=== PATIENT | male | born 1930 | race Caucasian/White ===

== ENCOUNTER 2018-09-22 10:02 | Observation (INO) | payer MEDICARE, OTHER ==
[~2018-09-22] VITALS: Ht 177.8 cm; Wt 62.5 kg
[~2018-09-22 10:02] MED LIST: ASPI325T; BENA10TA2; COUM1TAB17; DEMA20TA; FLOM0.4C39; HALC0.25; HUMUINJ; INSULANT; METO5TAB2; MULTIVIT; NEXI1CAP3; NORV5TAB; TENO25TA; ZOCO40TA
[2018-09-22] MEDS ORDERED: LISI-542 (10:16)
[2018-09-22] MEDS ORDERED: FURO40TA2 (10:16)
[2018-09-22] MEDS ORDERED: JANU100T (10:16)
[2018-09-22] MEDS ORDERED: GLIM4TAB (10:16)
[2018-09-22] MEDS ORDERED: ALLO100T (10:16)
[2018-09-22] MEDS ORDERED: CARV12.5 (10:16)
[2018-09-22] MEDS ORDERED: DONE5TAB82 (10:16)
[2018-09-22] MEDS ORDERED: POTA1TAB23 (10:16)
[2018-09-22] MEDS ORDERED: DIGO0.12 (10:16)
[2018-09-22 11:19] LABS: BASO # 0.1 10^3/uL (0.0-0.2); BASO % 0.5 % (0.0-1.0); EOS # 0.4 10^3/uL (0.0-0.50); HEMATOCRIT 36.8 % (42.0-52.0); HEMOGLOBIN 12.2 g/dl (13.5-17.5); LYMPH # 1.5 10^3/uL (1.5-4.5); LYMPH % 13.6 % (24.0-44.0); MEAN CORPUSCULAR HEMOGLOBIN 30.9 pg (27.0-33.0); MEAN CORPUSCULAR HGB CONC 33.2 g/dl (32.0-36.5); MEAN CORPUSCULAR VOLUME 93.2 fl (80.0-96.0); MONO # 0.8 10^3/uL (0.0-0.8); MONO % 7.4 % (0.0-5.0); NEUTROPHILS # 8.2 10^3/uL (1.8-7.7); PLATELET COUNT, AUTOMATED 199 10^3/uL (150-450); RED BLOOD COUNT 3.95 10^6/uL (4.30-6.10)
[2018-09-22] MEDS ORDERED: ARIC1TAB PO (11:30)
[2018-09-22] MEDS ORDERED: DIGO0.12 PO (11:30)
[2018-09-22] MEDS ORDERED: POTA10TA17 PO (11:30)
[2018-09-22] MEDS ORDERED: CARV12.5 PO (11:30)
[2018-09-22] MEDS ORDERED: GLIM4TAB PO (11:30)
[2018-09-22] MEDS ORDERED: WARF-23 PO (11:30)
[2018-09-22] MEDS ORDERED: JANU100T PO (11:30)
[2018-09-22] MEDS ORDERED: FURO40TA2 PO (11:30)
[2018-09-22] MEDS ORDERED: SIMV20TA2 PO (11:30)
[2018-09-22] MEDS ORDERED: ALLO100T PO (11:30)
[2018-09-22] MEDS ORDERED: LISI-542 PO (11:30)
[2018-09-22] MEDS ORDERED: WARF-18 PO (11:30)
[2018-09-22] MEDS ORDERED: TAMS1CAP17 PO (11:30)
[2018-09-22 11:32] LABS: INR 1.64; PROTHROMBIN TIME 19.7 SECONDS (12.1-14.4)
--- NOTE | 2018-09-22 12:07 | REP ---
CT BRAIN WITHOUT IV CONTRAST: CT brain performed without IV contrast. Comparison 07/07/2013. There is moderate atrophy. There is no midline shift or mass effect. Extensive periventricular small vessel ischemic changes are noted as seen on prior study. There is no acute hemorrhage. There is no extra-axial fluid collection. Vascular calcifications are seen in the carotid siphons. IMPRESSION: Chronic atrophy and small vessel ischemic changes without acute intracranial hemorrhage or other acute intracranial finding. Electronically Signed by Kaiden Rich MD 09/22/2018 03:46 P
[2018-09-22 12:09] LABS: ALBUMIN 3.3 GM/DL (3.2-5.2); BILIRUBIN,DIRECT 0.2 MG/DL (0.0-0.2); BILIRUBIN,TOTAL 0.6 MG/DL (0.2-1.0); CALCIUM LEVEL 8.7 MG/DL (8.8-10.2); CREATININE FOR GFR 1.49 MG/DL (0.70-1.30); DIGOXIN LEVEL 0.5 NG/ML (0.5-2.0); GLOMERULAR FILTRATION RATE 47.3 (>35); MB/CK RELATIVE INDEX 5.5 (< OR =4); POTASSIUM SERUM 4.1 MEQ/L (3.5-5.1); THYROID STIMULATING HORMONE 4.81 uIU/ML (0.358-3.740); TOTAL PROTEIN 6.3 GM/DL (6.4-8.2); TROPONIN I 0.13 NG/ML (< 0.10)
[2018-09-22 15:15] VITALS: BP 138/74
--- NOTE | 2018-09-22 15:30 | HPEPDOC ---
General Date of Admission September 22, 2018 at 14:12 Chief Complaint The patient is a 87-year-old male admitted with a reason for visit of Advanced D ementia Chronic Kidney Disease. Source: Patient, Family, RN/MD, Old records Exam Limitations: Dementia History of Present Illness 87 year old Male with PMH of advancing Dementia, CAD s/p CABG x 2, stents, Afib on coumadin, Pacemaker for tachy coretta syndrome, Diabetes, hypertension was brought in by daughter from home as he has been difficult to take care of at home. Patient's primary caregiver was his grand daughter from his son. Pateint's son recently had a cardiac arrest and and so his grand daughter is no longer able to provide the needed amount to support. Patient's daughter had been taking care of him for the past 2 weeks but she cannot provide the amount of care he now needs. Patient and his used to live together and take care of each other during the day with the niece coming in daily twice. Last week patient's had a fall and was brought here and then was placed into solder deposit operator care. Since her placement the patient has become more difficult to manage at home. This morning he had gone out to his shed to cut wood and he was trying to use the chain saw. Patient is ambulatory independently and tends to wander. So daughter brought him to the hospital with the intension of solder deposit operator placemen t in [facility] same fascility and same room as his . The family has been speaking with case management and [facility] about this . jomareint admitted to the hospitalist service in obs status with plans to long [facility] placement. Home Medications Scheduled Allopurinol (Allopurinol) 100 Mg Tablet, 100 MG PO DAILY, (Reported) Carvedilol (Carvedilol) 12.5 Mg Tablet, 6.25 MG PO BID, (Reported) Digoxin (Digoxin) 125 Mcg Tablet, 125 MCG PO QPM, (Reported) Donepezil HCl (Aricept) 5 Mg Tablet, 5 MG PO DAILY, (Reported) Furosemide (Furosemide) 40 Mg Tablet, 40 MG PO DAILY, (Reported) Glimepiride (Glimepiride) 4 Mg Tablet, 4 MG PO BID, (Reported) Lisinopril (Lisinopril) 5 Mg Tablet, 5 MG PO DAILY, (Reported) Potassium Chloride (Potassium Chloride) 10 Meq Tab.er.prt, 10 MEQ PO QPM, (Reported) Simvastatin (Simvastatin) 20 Mg Tablet, 20 MG PO QPM, (Reported) Sitagliptin Phosphate (Januvia) 100 Mg Tablet, 100 MG PO DAILY, (Reported) Tamsulosin Hcl (Tamsulosin HCl) 0.4 Mg Capsule, 0.4 MG PO DAILY, (Reported) Warfarin Sodium (Warfarin Sodium) 2.5 Mg Tablet, 2.5 MG PO QWEEK, (Reported) MONDAY MORNINGS Warfarin Sodium (Warfarin Sodium) 5 Mg Tablet, 5 MG PO 6XWK, (Reported) SUN/MON///MON/MON MORNINGS Allergies Coded Allergies: atorvastatin (Verified Adverse Reaction, Unknown, 09/22/18) upset stomach Past Medical History Medical History Dementia, CAD s/p CABG x 2, stents, Afib on coumadin, Pacemaker for tachy coretta syndrome, Diabetes, hypertension, gout, hyperlipidemia, BPH Surgical History CABG x 2, Pacemaker Social History * Smoker: Denies Alcohol: Denies Drugs: denies A-FIB/CHADSVASC A-FIB History Current/History of A-Fib/PAF?: Yes Current Oral Anticoagulant The: Yes Review of Systems Constitutional: Denies: Chills, Fever, Night Sweats Eyes: Denies: Pain, Vision change ENT: Denies: Head Aches, Ear Pain, Dysphagia Skin: Denies: Rash, Lesions, Breakdown Pulmonary: Denies: Dyspnea, Cough Cardiovascular: Denies: Chest Pain, Palpitations, Orthopnea Gastrointestinal: Denies: Nausea, Vomiting, Abdominal Pain, Diarrhea Genitourinary: Reports: Frequency; Denies: Dysuria, Incontinence, Retention Hematologic: Denies: Bruising, Bleeding Excessively Neurological: Reports: Confusion Psych: Reports: Memory Issues Physical Examination General Exam: Positive: Alert, Cooperative, No Acute Distress, Other (Oriented to place and person) Eye Exam: Positive: Conjunctiva & lids normal ENT Exam: Positive: Atraumatic, Mucous membr. moist/pink, Pharynx Normal Neck Exam: Positive: Supple; Negative: JVD, thyromegaly Chest Exam: Positive: Clear to auscultation, Normal air movement Heart Exam: Positive: Rate Normal, Tachycardic, Irregular Rhythm, Normal S1, Normal S2; Negative: Gallops, Murmurs, Rubs Telemetry: Positive: Atrial fibrillation, Other Telemetry: (paced complexes) Abdomen Exam: Positive: Normal bowel sounds, Soft; Negative: Tenderness, Hepatospenomegaly Extremity Exam: Positive: Normal pulses; Negative: Clubbing, Cyanosis, Edema Skin Exam: Positive: Nl turgor and temperature; Negative: Breakdown, Lesion Neuro Exam: Positive: Normal Speech, Strength at 5/5 X4 ext, Normal Tone Vital Signs Vital Signs Date Time Temp Pulse Resp B/P (MAP) Pulse Ox O2 Delivery O2 Flow Rate FiO2 09/22/18 14:32 66 18 98 Room Air 09/22/18 14:30 142/78 (99) 09/22/18 10:04 97.9 Laboratory Data Labs 24H Laboratory Tests 2 09/22/18 11:05: Immature Granulocyte % (Auto) 0.5, White Blood Count 11.0H, Red Blood Count 3.95L, Hemoglobin 12.2L, Hematocrit 36.8L, Mean Corpuscular Volume 93.2, Mean Corpuscular Hemoglobin 30.9, Mean Corpuscular Hemoglobin Concent 33.2, Red Cell Distribution Width 14.2, Platelet Count 199, Neutrophils (%) (Auto) 74.0H, Lymphocytes (%) (Auto) 13.6L, Monocytes (%) (Auto) 7.4H, Eosinophils (%) (Auto) 4.0H, Basophils (%) (Auto) 0.5, Neutrophils # (Auto) 8.2H, Lymphocytes # (Auto) 1.5, Monocytes # (Auto) 0.8, Eosinophils # (Auto) 0.4, Basophils # (Auto) 0.1, Nucleated Red Blood Cells % (auto) 0.0, Prothrombin Time 19.7H, Prothromb Time International Ratio 1.64, Anion Gap 6L, Glomerular Filtration Rate 47.3, Calcium Level 8.7L, Aspartate Amino Transf (AST/SGOT) 11, Alanine Aminotransferase (ALT/SGPT) 13, Alkaline Phosphatase 127H, Total Bilirubin 0.6, Direct Bilirubin 0.2, Ammonia 21, Total Creatine Kinase 40, Creatine Kinase MB 2.0, Creatine Kinase MB Relative Index 5.50H, Troponin I 0.13H, Total Protein 6.3L, Albumin 3.3, Albumin/Globulin Ratio 1.10, Thyroid Stimulating Hormone (TSH) 4.810H, Digoxin Level 0.5 09/22/18 13:16: Urine Color YELLOW, Urine Appearance CLEAR, Urine pH 5.0, Urine Specific [place] 1.010, Urine Protein 1+H, Urine Glucose (UA) 1+H, Urine Ketones NEGATIVE, Urine Blood NEGATIVE, Urine Nitrite NEGATIVE, Urine Bilirubin NEGATIVE, Urine Urobilinogen 0.2, Urine Leukocyte Esterase NEGATIVE, Urine WBC (Auto) 0, Urine RBC (Auto) 4H, Urine Hyaline Casts (Auto) 6, Urine Bacteria (Auto) NEGATIVE, Urine Squamous Epithelial Cells 0, Urine Sperm (Auto) CBC/BMP Laboratory Tests 09/22/18 11:05 Red Blood Count 3.95 L, Mean Corpuscular Volume 93.2, Mean Corpuscular Hemoglo bin 30.9, Mean Corpuscular Hemoglobin Concent 33.2, Red Cell Distribution Width 14.2, Neutrophils (%) (Auto) 74.0 H, Lymphocytes (%) (Auto) 13.6 L, Monocytes (%) (Auto) 7.4 H, Eosinophils (%) (Auto) 4.0 H, Basophils (%) (Auto) 0.5, Neutrophils # (Auto) 8.2 H, Lymphocytes # (Auto) 1.5, Monocytes # (Auto) 0.8, Eosinophils # (Auto) 0.4, Basophils # (Auto) 0.1 Assessment/Plan 87 year old Male with PMH of advancing Dementia, CAD s/p CABG x 2, stents, Afib on coumadin, Pacemaker for tachy coretta syndrome, Diabetes, hypertension was brought in by daughter from home as he has been difficult to take care of at home. Patient's primary caregiver was his grand daughter from his son. Pateint's son recently had a cardiac arrest and and so his grand daughter is no longer able to provide the needed amount to support. Patient's daughter had been taking care of him for the past 2 weeks but she cannot provide the amount of care he now needs. Patient and his used to live together and take care of each other during the day with the niece coming in daily twice. Last week patient's had a fall and was brought here and then was placed into [facility] care. Since her placement the patient has become more difficult to manage at home. This morning he had gone out to his shed to cut wood and he was trying to use the chain saw. Patient is ambulatory independently and tends to wander. So daughter brought him to the hospital with the intension of [facility] placem ent in [facility] same fascility and same room as his . The family has been speaking with case management and [facility] about this . pateint admitted to the hospitalist service in obs status with plans to long tern NH placement. 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 sometimes wanders. PFS consult, PT consult for [facility] placement continue donepezil Afib rate controlled with dig on coumadin has pacemaker in place Diabetes continue home meds Gout continue allopurinol CKD stage 3 stable continue lasix Hyperlipidemia continue statin CAD s/p CABG continue stain, coreg and coumadin no issues at present BPH continue flomax DVT prophylaxis TEDS and coumadin. Plan / VTE VTE Prophylaxis Ordered?: Yes TIM PANIAGUA MD September 22, 2018 15:30
[2018-09-22 22:00] VITALS: BP 118/61
[2018-09-22] MEDS: CARVedilol 6.25 MG TAB PO SCH (22:08)
[2018-09-22] MEDS: POTASSIUM CHLORIDE 10 MEQ SR TABLET PO SCH (22:08)
[2018-09-22] MEDS: GLIMEPIRIDE 2 MG TAB PO SCH (22:09)
[2018-09-22] MEDS: DIGOXIN 0.125 MG TAB PO SCH (22:09)
[2018-09-22] MEDS: SIMVASTATIN 20 MG TAB PO SCH (22:09)
[2018-09-23 06:00] VITALS: BP 115/69
[2018-09-23 07:05] LABS: BASO # 0.1 10^3/uL (0.0-0.2); BASO % 0.7 % (0.0-1.0); EOS # 0.5 10^3/uL (0.0-0.50); EOS % 5.3 % (0.0-3.0); HEMATOCRIT 35.9 % (42.0-52.0); HEMOGLOBIN 11.9 g/dl (13.5-17.5); LYMPH # 2.1 10^3/uL (1.5-4.5); LYMPH % 21.8 % (24.0-44.0); MEAN CORPUSCULAR HEMOGLOBIN 30.7 pg (27.0-33.0); MEAN CORPUSCULAR HGB CONC 33.1 g/dl (32.0-36.5); MEAN CORPUSCULAR VOLUME 92.8 fl (80.0-96.0); MONO % 10.3 % (0.0-5.0); NEUTROPHILS # 5.8 10^3/uL (1.8-7.7); NEUTROPHILS % 61.6 % (36.0-66.0); PLATELET COUNT, AUTOMATED 211 10^3/uL (150-450); RED BLOOD COUNT 3.87 10^6/uL (4.30-6.10); WHITE BLOOD COUNT 9.5 10^3/uL (4.0-10.0)
[2018-09-23 07:16] LABS: INR 1.86; PROTHROMBIN TIME 21.8 SECONDS (12.1-14.4)
[2018-09-23 07:17] LABS: CALCIUM LEVEL 8.8 MG/DL (8.8-10.2); CREATININE FOR GFR 1.73 MG/DL (0.70-1.30); GLOMERULAR FILTRATION RATE 39.8 (>35); POTASSIUM SERUM 3.8 MEQ/L (3.5-5.1)
[2018-09-23] MEDS: TAMSULOSIN 0.4 MG CAP PO SCH (08:42)
[2018-09-23] MEDS: GLIMEPIRIDE 2 MG TAB PO SCH ×2 (08:42→20:57)
[2018-09-23] MEDS: ALLOPURINOL 100 MG TAB PO SCH (08:42)
[2018-09-23] MEDS: SITagliptin 50 MG TAB (JANUVIA) PO SCH (08:42)
[2018-09-23] MEDS: CARVedilol 6.25 MG TAB PO SCH ×2 (08:43→20:58)
[2018-09-23] MEDS: DONEPEZIL 5 MG TAB PO SCH (08:43)
[2018-09-23] MEDS ORDERED: LISINOPRIL 5 MG TAB PO SCH (09:00)
[2018-09-23] MEDS ORDERED: FUROSEMIDE 40 MG TAB PO SCH (09:00)
--- NOTE | 2018-09-23 11:20 | IPNPDOC ---
Subjective Date Seen The patient was seen on 09/23/18. Subjective Chief Complaint/HPI Advancing dementia unable to take care at home. Events since last encounter No issues overnight. Slept well, did not have much oral intake, No fever or chills, no chest pain or sob , no abdominal pain , nausea or vomiting. Objective Physical Examination General Exam: Positive: Alert, Cooperative, No Acute Distress, Other (Oriented to place and person) Eye Exam: Positive: Conjunctiva & lids normal ENT Exam: Positive: Atraumatic, Mucous membr. moist/pink, Pharynx Normal Neck Exam: Positive: Supple; Negative: JVD, thyromegaly Chest Exam: Positive: Clear to auscultation, Normal air movement Heart Exam: Positive: Rate Normal, Tachycardic, Irregular Rhythm, Normal S1, Normal S2; Negative: Gallops, Murmurs, Rubs Telemetry: Positive: Atrial fibrillation, Other Telemetry: (paced complexes) Abdomen Exam: Positive: Normal bowel sounds, Soft; Negative: Tenderness, Hepatospenomegaly Extremity Exam: Positive: Normal pulses; Negative: Clubbing, Cyanosis, Edema Skin Exam: Positive: Nl turgor and temperature; Negative: Breakdown, Lesion Neuro Exam: Positive: Normal Speech, Strength at 5/5 X4 ext, Normal Tone Assessment /Plan Assessment 87 year old Male with PMH of advancing Dementia, CAD s/p CABG x 2, stents, Afib on coumadin, Pacemaker for tachy coretta syndrome, Diabetes, hypertension was brought in by daughter from home as he has been difficult to take care of at home. Patient's primary caregiver was his grand daughter from his son. Patient's son recently had a cardiac arrest and and so his grand daughter is no longer able to provide the needed amount to support. Patient's daughter had been taking care of him for the past 2 weeks but she cannot provide the amount of care he now needs. Patient and his used to live together and take care of each other during the day with the niece coming in daily twice. Last week patient's had a fall and was brought here and then was placed into residential care. Since her placement the patient has become more difficult to manage at home. This morning he had gone out to his shed to cut wood and he was trying to use the chain saw. Patient is ambulatory independently and tends to wander. So daughter brought him to the hospital with the intension of residential placement in [facility] same fascility and same room as his . The family has been s peaking with case management and [facility] about this . pateint admitted to the hospitalist service in obs status with plans to long tern NH placement. 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 sometimes wanders. PFS consult, PT consult for residential placement continue donepezil Afib rate controlled with dig INR better today. will continue home dose of coumadin. on coumadin has pacemaker in place Diabetes continue home meds Gout continue allopurinol CKD stage 3 some worsening of creatinine probably from poor oral intake. will hold lasix and lisinopril. Hyperlipidemia continue statin CAD s/p CABG continue stain, coreg and coumadin no issues at present Hypertension on coreg,lisinopril , lasix will hold lisinopril and lasix. BPH continue flomax DVT prophylaxis TEDS and coumadin. Plan/VTE VTE Prophylaxis Ordered?: Yes VS, I&O, 24H, Fishbone Vital Signs/I&O Vital Signs Date Time Temp Pulse Resp B/P (MAP) Pulse Ox O2 Delivery O2 Flow Rate FiO2 09/23/18 08:43 124/70 09/23/18 08:43 77 09/23/18 06:00 97.0 18 97 09/22/18 15:00 Room Air I&O- Last 24 Hours up to 6 AM 09/23/18 06:00 Intake Total 390 ml Output Total 0 ml Balance 390 ml Laboratory Data 24H LABS Laboratory Tests 2 09/22/18 13:16: Urine Color YELLOW, Urine Appearance CLEAR, Urine pH 5.0, Urine Specific [place] 1.010, Urine Protein 1+H, Urine Glucose (UA) 1+H, Urine Ketones NEGATIVE, Urine Blood NEGATIVE, Urine Nitrite NEGATIVE, Urine Bilirubin NEGATIVE, Urine Uro bilinogen 0.2, Urine Leukocyte Esterase NEGATIVE, Urine WBC (Auto) 0, Urine RBC (Auto) 4H, Urine Hyaline Casts (Auto) 6, Urine Bacteria (Auto) NEGATIVE, Urine Squamous Epithelial Cells 0, Urine Sperm (Auto) 09/22/18 22:11: Bedside Glucose (Misc Panel) 231H 09/23/18 05:42: Immature Granulocyte % (Auto) 0.3, White Blood Count 9.5, Red Blood Count 3.87L, Hemoglobin 11.9L, Hematocrit 35.9L, Mean Corpuscular Volume 92.8, Mean Corpuscular Hemoglobin 30.7, Mean Corpuscular Hemoglobin Concent 33.1, Red Cell Distribution Width 14.4, Platelet Count 211, Neutrophils (%) (Auto) 61.6, Lymphocytes (%) (Auto) 21.8L, Monocytes (%) (Auto) 10.3H, Eosinophils (%) (Auto) 5.3H, Basophils (%) (Auto) 0.7, Neutrophils # (Auto) 5.8, Lymphocytes # (Auto) 2.1, Monocytes # (Auto) 1.0H, Eosinophils # (Auto) 0.5, Basophils # (Auto) 0.1, Nucleated Red Blood Cells % (auto) 0.0, Prothrombin Time 21.8H, Prothromb Time International Ratio 1.86, Anion Gap 3L, Glomerular Filtration Rate 39.8, Blood Urea Nitrogen 22H, Creatinine 1.73H, Sodium Level 139, Potassium Level 3.8, Chloride Level 102, Carbon Dioxide Level 34H, Calcium Level 8.8 CBC/BMP Laboratory Tests 09/23/18 05:42 Red Blood Count 3.87 L, Mean Corpuscular Volume 92.8, Mean Corpuscular Hemoglobin 30.7, Mean Corpuscular Hemoglobin Concent 33.1, Red Cell Distribution Width 14.4, Neutrophils (%) (Auto) 61.6, Lymphocytes (%) (Auto) 21.8 L, Monocytes (%) (Auto) 10.3 H, Eosinophils (%) (Auto) 5.3 H, Basophils (%) (Auto) 0.7, Neutrophils # (Auto) 5.8, Lymphocytes # (Auto) 2.1, Monocytes # (Auto) 1.0 H, Eosinophils # (Auto) 0.5, Basophils # (Auto) 0.1, Calcium Level 8.8 TIM PANIAGUA MD September 23, 2018 11:20
[2018-09-23 14:00] VITALS: BP 104/55
[2018-09-23] MEDS ORDERED: WARFARIN SOD 5 MG TAB PO SCH (17:00)
[2018-09-23] MEDS: SIMVASTATIN 20 MG TAB PO SCH (20:56)
[2018-09-23] MEDS: DIGOXIN 0.125 MG TAB PO SCH (20:57)
[2018-09-23] MEDS: POTASSIUM CHLORIDE 10 MEQ SR TABLET PO SCH (20:58)
--- NOTE | 2018-09-23 21:00 | ECGEPIP ---
Stationary ECG Study [facility] - ED Test Date: 2018-09-22 Pat Name: YOHAN LYN Department: Room: - Gender: M Stoner Out: JT : 1930 Requested By: Nuha Archer Order Number: [id number] Reading MD: Nuha Archer Measurements Intervals [place] Rate: 72 P: DC: 0 QRS: -40 QRSD: 154 T: 224 QT: 460 QTc: 506 Interpretive Statements ATRIAL FIBRILLATION ELECTRONIC VENTRICULAR PACEMAKER MARKED LEFT AXIS DEVIATION LEFT BUNDLE BRANCH BLOCK Electronically Signed On 09-23-2018 21:00:18 EDT by Nuha Archer
[2018-09-23 22:00] VITALS: BP 102/55
[2018-09-24 06:00] VITALS: BP 113/60
[2018-09-24 06:54] LABS: BASO % 0.4 % (0.0-1.0); EOS # 0.5 10^3/uL (0.0-0.50); EOS % 4.8 % (0.0-3.0); HEMATOCRIT 35.3 % (42.0-52.0); HEMOGLOBIN 11.4 g/dl (13.5-17.5); LYMPH # 1.8 10^3/uL (1.5-4.5); LYMPH % 18.4 % (24.0-44.0); MEAN CORPUSCULAR HEMOGLOBIN 29.9 pg (27.0-33.0); MEAN CORPUSCULAR HGB CONC 32.3 g/dl (32.0-36.5); MEAN CORPUSCULAR VOLUME 92.7 fl (80.0-96.0); MONO # 0.9 10^3/uL (0.0-0.8); MONO % 9.3 % (0.0-5.0); NEUTROPHILS # 6.5 10^3/uL (1.8-7.7); NEUTROPHILS % 66.6 % (36.0-66.0); PLATELET COUNT, AUTOMATED 202 10^3/uL (150-450); RED BLOOD COUNT 3.81 10^6/uL (4.30-6.10); WHITE BLOOD COUNT 9.8 10^3/uL (4.0-10.0)
[2018-09-24 06:59] LABS: INR 1.72; PROTHROMBIN TIME 20.5 SECONDS (12.1-14.4)
[2018-09-24 07:16] LABS: CREATININE FOR GFR 1.74 MG/DL (0.70-1.30); GLOMERULAR FILTRATION RATE 39.5 (>35); POTASSIUM SERUM 4.6 MEQ/L (3.5-5.1)
[2018-09-24 08:26] VITALS: BP 113/60
[2018-09-24] MEDS: TAMSULOSIN 0.4 MG CAP PO SCH (08:26)
[2018-09-24] MEDS: SITagliptin 50 MG TAB (JANUVIA) PO SCH (08:26)
[2018-09-24] MEDS: DONEPEZIL 5 MG TAB PO SCH (08:26)
[2018-09-24] MEDS: CARVedilol 6.25 MG TAB PO SCH (08:26)
[2018-09-24] MEDS: ALLOPURINOL 100 MG TAB PO SCH (08:26)
[2018-09-24] MEDS: GLIMEPIRIDE 2 MG TAB PO SCH (08:27)
--- NOTE | 2018-09-24 11:17 | IPNPDOC ---
Subjective Date Seen The patient was seen on 09/24/18. 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 Does not offer any complaints. Very poor short term memory. Objective Physical Examination General Exam: Positive: Alert, Cooperative, No Acute Distress, Other (Oriented to place and person) Eye Exam: Positive: Conjunctiva & lids normal ENT Exam: Positive: Atraumatic, Mucous membr. moist/pink, Pharynx Normal Neck Exam: Positive: Supple; Negative: JVD, thyromegaly Chest Exam: Positive: Clear to auscultation, Normal air movement Heart Exam: Positive: Rate Normal, Tachycardic, Irregular Rhythm, Normal S1, Normal S2; Negative: Gallops, Murmurs, Rubs Telemetry: Positive: Atrial fibrillation, Other Telemetry: (paced complexes) Abdomen Exam: Positive: Normal bowel sounds, Soft; Negative: Tenderness, Hepatospenomegaly Extremity Exam: Positive: Normal pulses; Negative: Clubbing, Cyanosis, Edema Skin Exam: Positive: Nl turgor and temperature; Negative: Breakdown, Lesion Neuro Exam: Positive: Normal Speech, Strength at 5/5 X4 ext, Normal Tone Assessment /Plan Assessment 87 year old Male with PMH of advancing Dementia, CAD s/p CABG x 2, stents, Afib on coumadin, Pacemaker for tachy coretta syndrome, Diabetes, hypertension was brought in by daughter from home as he has been difficult to take care of at home. Patient's primary caregiver was his grand daughter from his son. Patient's son recently had a cardiac arrest and and so his grand daughter is no longer able to provide the needed amount to support. Patient's daughter had been taking care of him for the past 2 weeks but she cannot provide the amount of care he now needs. Patient and his used to live together and take care of each other during the day with the niece coming in daily twice. Last week patient's had a fall and was brought here and then was placed into half-way care. Since her placement the patient has become more difficult to manage at home. This morning he had gone out to his shed to cut wood and he was trying to use the chain saw. Patient is ambulatory independently and tends to wander. So daughter brought him to the hospital with the intension of ocean transportation intermediary placement in [facility] same fascility and same room as his . The family has been speaking with case management and [facility] about this . pateint admitted to the hospitalist service in obs status with plans to long tern NH placement. 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 sometimes wanders. PFS consult, PT consult for ocean transportation intermediary placement continue donepezil Afib rate controlled with dig INR better today. will continue home dose of coumadin. on coumadin has pacemaker in place Diabetes continue home meds Gout continue allopurinol CKD stage 3 creatinine stable. probably from poor oral intake. will stop potassium restart lasix and lisinopril Hyperlipidemia continue statin CAD s/p CABG continue stain, coreg and coumadin no issues at present Hypertension on coreg,lisinopril , lasix will hold lisinopril and lasix. BPH continue flomax Disposition: Discharge to [facility] for ocean transportation intermediary care. Plan/VTE VTE Prophylaxis Ordered?: Yes VS, I&O, 24H, Fishbone Vital Signs/I&O Vital Signs Date Time Temp Pulse Resp B/P (MAP) Pulse Ox O2 Delivery O2 Flow Rate FiO2 09/24/18 08:26 65 113/60 09/24/18 06:00 97.7 18 93 09/22/18 15:00 Room Air I&O- Last 24 Hours up to 6 AM 09/24/18 06:00 Intake Total 806 ml Output Total 0 ml Balance 806 ml Laboratory Data 24H LABS Laboratory Tests 2 09/23/18 20:51: Bedside Glucose (Misc Panel) 129H 09/24/18 05:50: Immature Granulocyte % (Auto) 0.5, White Blood Count 9.8, Red Blood Count 3.81L, Hemoglobin 11.4L, Hematocrit 35.3L, Mean Corpuscular Volume 92.7, Mean Corpuscular Hemoglobin 29.9, Mean Corpuscular Hemoglobin Concent 32.3, Red Cell Distribution Width 14.3, Platelet Count 202, Neutrophils (%) (Auto) 66.6H, Lymphocytes (%) (Auto) 18.4L, Monocytes (%) (Auto) 9.3H, Eosinophils (%) (Auto) 4.8H, Basophils (%) (Auto) 0.4, Neutrophils # (Auto) 6.5, Lymphocytes # (Auto) 1.8, Monocytes # (Auto) 0.9H, Eosinophils # (Auto) 0.5, Basophils # (Auto) 0.0, Nucleated Red Blood Cells % (auto) 0.0, Prothrombin Time 20.5H, Prothromb Time International Ratio 1.72, Anion Gap 2L, Glomerular Filtration Rate 39.5, Blood Urea Nitrogen 31H, Creatinine 1.74H, Sodium Level 138, Potassium Level 4.6#, Chloride Level 102, Carbon Dioxide Level 34H, Calcium Level 9.0 CBC/BMP Laboratory Tests 09/24/18 05:50 Red Blood Count 3.81 L, Mean Corpuscular Volume 92.7, Mean Corpuscular Hemoglobin 29.9, Mean Corpuscular Hemoglobin Concent 32.3, Red Cell Distribution Width 14.3, Neutrophils (%) (Auto) 66.6 H, Lymphocytes (%) (Auto) 18.4 L, Monocytes (%) (Auto) 9.3 H, Eosinophils (%) (Auto) 4.8 H, Basophils (%) (Auto) 0.4, Neutrophils # (Auto) 6.5, Lymphocytes # (Auto) 1.8, Monocytes # (Auto) 0.9 H, Eosinophils # (Auto) 0.5, Basophils # (Auto) 0.0, Calcium Level 9.0 TIM PANIAGUA MD September 24, 2018 11:17
[2018-09-26] MEDS ORDERED: WARFARIN SOD 2.5 MG TAB PO SCH (17:00)
== END 2018-09-24 12:57 ==
LOC: M ED 10:02 → M ED INP 14:12 → M MSPAV 15:11
PROVIDERS: ADMIT Internal Medicine Nephrology; ATTEND Internal Medicine Nephrology
DX: F03.90 Unspecified dementia, unspecified severity, without behavioral disturbance, psychotic disturbance, mood disturbance, and anxiety (principal); N18.3 Chronic kidney disease, stage 3 (moderate); I25.10 Atherosclerotic heart disease of native coronary artery without angina pectoris; I12.9 Hypertensive chronic kidney disease with stage 1 through stage 4 chronic kidney disease, or unspecified chronic kidney disease; I48.91 Unspecified atrial fibrillation; E11.9 Type 2 diabetes mellitus without complications; E78.49 Other hyperlipidemia; Z79.01 Long term (current) use of anticoagulants; Z95.1 Presence of aortocoronary bypass graft; Z98.61 Coronary angioplasty status; Z95.0 Presence of cardiac pacemaker; Z79.899 Other long term (current) drug therapy; Z88.8 Allergy status to other drugs, medicaments and biological substances; N40.0 Benign prostatic hyperplasia without lower urinary tract symptoms
CPT/HCPCS: 36415; 70450; 80048; 80076; 80162; 81001; 82140; 82550; 82553; 84443; 84484; 85025; 85610; 93005; 93041; 94760; 97161; 99285; G0378

== ENCOUNTER → 2018-09-27 | Outpatient (REF) | payer MEDICARE ==
[~2018-09-27] MED LIST changes: +ALLO100T; +ALLO100T PO; +ARIC1TAB PO; +CARV12.5; +CARV12.5 PO; +DIGO0.12; +DIGO0.12 PO; +DONE5TAB82; +FURO40TA2; +FURO40TA2 PO; +GLIM4TAB; +GLIM4TAB PO; +JANU100T; +JANU100T PO; +LISI-542; +LISI-542 PO; +POTA10TA17 PO; +POTA1TAB23; +SIMV20TA2 PO; +TAMS1CAP17 PO; +WARF-18 PO; +WARF-23 PO
[2018-09-27 08:30] LABS: HEMOGLOBIN A1c 8.9 %
[2018-09-27 08:33] LABS: HEMATOCRIT 35.4 % (42.0-52.0); HEMOGLOBIN 11.7 g/dl (13.5-17.5); MEAN CORPUSCULAR HEMOGLOBIN 31.2 pg (27.0-33.0); MEAN CORPUSCULAR HGB CONC 33.1 g/dl (32.0-36.5); MEAN CORPUSCULAR VOLUME 94.4 fl (80.0-96.0); PLATELET COUNT, AUTOMATED 217 10^3/uL (150-450); RED BLOOD COUNT 3.75 10^6/uL (4.30-6.10)
[2018-09-27 09:59] LABS: ALBUMIN 3.3 GM/DL (3.2-5.2); BILIRUBIN,TOTAL 0.7 MG/DL (0.2-1.0); CALCIUM LEVEL 9.1 MG/DL (8.8-10.2); CREATININE FOR GFR 1.56 MG/DL (0.70-1.30); GLOMERULAR FILTRATION RATE 44.8 (>35); POTASSIUM SERUM 4.3 MEQ/L (3.5-5.1); TOTAL PROTEIN 6.3 GM/DL (6.4-8.2)
== END ==
LOC: SKLAB6 07:00
DX: I12.9 Hypertensive chronic kidney disease with stage 1 through stage 4 chronic kidney disease, or unspecified chronic kidney disease (principal); I48.91 Unspecified atrial fibrillation; N18.3 Chronic kidney disease, stage 3 (moderate); E11.9 Type 2 diabetes mellitus without complications

== ENCOUNTER → 2018-10-02 | Outpatient (REF) | payer MEDICARE ==
[2018-10-02 07:40] LABS: CALCIUM LEVEL 9.3 MG/DL (8.8-10.2); CREATININE FOR GFR 1.65 MG/DL (0.70-1.30); POTASSIUM SERUM 4.5 MEQ/L (3.5-5.1)
== END ==
LOC: SKLAB6 07:00
DX: F03.90 Unspecified dementia, unspecified severity, without behavioral disturbance, psychotic disturbance, mood disturbance, and anxiety (principal); N18.3 Chronic kidney disease, stage 3 (moderate); I48.91 Unspecified atrial fibrillation; E11.9 Type 2 diabetes mellitus without complications; E78.5 Hyperlipidemia, unspecified